=== PATIENT | female | born 1990 | race Caucasian/White ===

== ENCOUNTER 2018-12-17 15:19 | Emergency (ER) | payer SELFPAY ==
[2018-12-17 15:43] VITALS: BP 119/78
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
[2018-12-17] MEDS ORDERED: Acetaminophen Soln 650 MG/20.3 ML UD Cup PO ONE (16:28)
[2018-12-17] MEDS ORDERED: Ibuprofen 400 MG Tab PO ONE (16:29)
== END 2018-12-17 16:38 | disposition home or self-care (01) ==
LOC: JP.ED 15:19
DX: R51 Headache (principal); Z88.2 Allergy status to sulfonamides; Z88.1 Allergy status to other antibiotic agents
CPT/HCPCS: 99283; A9270

== ENCOUNTER 2020-11-22 20:22 | Inpatient (IN) | payer OTHER ==
[2020-11-22] MEDS ORDERED: Alum Hydrox/Mag Hydrox/Simeth 15 ML, Lidocaine 2% 15 ML PO ONE ×2 (21:06)
--- NOTE | 2020-11-22 21:17 | EDM.PDOC ---
ED HPI GENERAL MEDICAL PROBLEM - General Chief Complaint: Abdominal Pain Stated Complaint: STOMACH PAIN Time Seen by Provider: 11/22/20 20:50 Source of Information: Reports: Patient, Family, RN History Limitations: Reports: No Limitations - History of Present Illness INITIAL COMMENTS - FREE TEXT/NARRATIVE: Pt comes in with abdominal pain. Patient points specifically to epigastric region. She has not eaten anything all day. She has been drinking water all day. She does not have nausea and is not vomiting. She does not feel she could be at this time. BM yesterday. Able to void without difficulty today. Pt has tried ibuprofen to make it better without success. 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 epigastric pain Pain Score (Numeric/FACES): 10 - Related Data Allergies Allergy/AdvReac Type Severity Reaction Status Date / Time sulfamethoxazole Allergy Rash Verified 11/22/20 20:43 [From Bactrim] trimethoprim [From Bactrim] Allergy Rash Verified 11/22/20 20:43 Home Meds: Home Meds NK [No Known Home Meds] 11/22/20 [History] Past Medical History HEENT History: Reports: Impaired Vision, Other (See Below) Other HEENT History: glasses Gastrointestinal History: Reports: Cholelithiasis Genitourinary History: Reports: None 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: Reports: Polycystic Ovaries Other 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: ovarian cyst, has IUD Psychiatric History: Reports: Depression, Suicide Attempt, Suicidal Ideation Endocrine/Metabolic History: Reports: Obesity/BMI 30+ - Infectious Disease History Infectious Disease History: Reports: Chicken Pox - Past Surgical History HEENT Surgical History: Reports: Oral Surgery GI Surgical History: Reports: Appendectomy, Bariatric Procedure, Cholecystectomy Other GI Surgeries/Procedures: January 2015 Female Surgical History: Reports: Oophorectomy Other Female Surgeries/Procedures: cyst Social & Family History - Family History HEENT: Reports: None Cardiac: Reports: Hypertension Respiratory: Reports: None GI: Reports: None Neurological: Reports: Other (See Below) Other Neurological Family History: maternal grandfather had ALS Endocrine/Metabolic: Reports: Diabetes, type II, Obesity/MBI 30+ Other Endocrine/Metabolic Family History: Mother and both grandmothers are Type 2 - Tobacco Use Tobacco Use Status *Q: Never Tobacco User - Caffeine Use Caffeine Use: Reports: Coffee, Soda - Recreational Drug Use Recreational Drug Use: No ED ROS GENERAL - Review of Systems Review Of Systems: See Below Constitutional: Reports: No Symptoms HEENT: Reports: No Symptoms Respiratory: Reports: No Symptoms Cardiovascular: Reports: No Symptoms Endocrine: Reports: No Symptoms GI/Abdominal: Reports: Abdominal Pain (epigastric pain), Other (hystory RNY). Denies: Constipation, Diarrhea, Decreased Appetite, Difficulty Swallowing, Nausea, Vomiting : Reports: No Symptoms Musculoskeletal: Reports: No Symptoms Skin: Reports: No Symptoms Neurological: Reports: No Symptoms Psychiatric: Reports: No Symptoms Hematologic/Lymphatic: Reports: No Symptoms Immunologic: Reports: No Symptoms ED EXAM, GI/ABD - Physical Exam Exam: See Below Exam Limited By: No Limitations General Appearance: Alert, WD/WN Throat/Mouth: Normal Inspection, Other (multiple dental carries) Head: Atraumatic, Normocephalic Neck: Normal Inspection, Supple Respiratory/Chest: No Respiratory Distress, Lungs Clear, Normal Breath Sounds, No Accessory Muscle Use, Chest Non-Tender Cardiovascular: Normal Peripheral Pulses, Regular Rate, Rhythm, No Edema, No Gallop, No JVD, No Murmur, No Rub GI/Abdominal Exam: Normal Bowel Sounds, Soft, No Distention, No Abnormal Bruit, No Mass, Guarding, Tender (epigasric region). No: Distended Neurological: Alert, Oriented, CN II-XII Intact Psychiatric: Normal Affect, Normal Mood Skin Exam: Warm, Dry, Intact Course - Vital Signs Last Recorded V/S: Last Vital Signs Temp 37.7 C 11/22/20 20:53 Pulse 68 11/22/20 20:53 Resp 20 11/22/20 20:53 BP 139/73 11/22/20 20:53 Pulse Ox 97 11/22/20 20:53 - Orders/Labs/Meds Orders: Active Orders 24 hr Category Date Time Status Lactated Ringers [Ringers, Lactated] 1,000 ml Med 11/22/20 23:01 Active IV BOLUS Medication Orders Lactated Ringer's (Ringers, Lactated) 1,000 mls @ 999 mls/hr IV BOLUS ONE Stop: 11/23/20 00:01 Last Admin: 11/22/20 23:13 Dose: 999 mls/hr Documented by: ARTI Abdomen/pelvis ct on preliminary view shows significant inflammation around Pancrease will wait for radiologist read Labs: Laboratory Tests 11/22/20 11/22/20 11/22/20 Range/Units 21:23 21:23 21:39 WBC 8.1 (4.5-11.0) K/uL RBC 4.37 (3.30-5.50) M/uL Hgb 13.0 (12.0-15.0) g/dL Hct 40.2 (36.0-48.0) % MCV 92 (80-98) fL MCH 30 (27-31) pg MCHC 32 (32-36) % Plt Count 221 (150-400) K/uL Neut % (Auto) 89 H (36-66) % Lymph % (Auto) 6 L (24-44) % [place] % (Auto) 5 (2-6) % Eos % (Auto) 0 L (2-4) % Baso % (Auto) 0 (0-1) % Sodium 139 L (140-148) mmol/L Potassium 4.1 (3.6-5.2) mmol/L Chloride 99 L (100-108) mmol/L Carbon Dioxide 28 (21-32) mmol/L Anion Gap 16.1 H (5.0-14.0) mmol/L BUN 6 L (7-18) mg/dL Creatinine 0.7 (0.6-1.0) mg/dL Est Cr Clr Drug Dosing 113.24 mL/min Estimated GFR (MDRD) > 60 (>60) Glucose 123 H (74-106) mg/dL Calcium 8.4 L (8.5-10.1) mg/dL Total Bilirubin 2.2 H D (0.2-1.0) mg/dL AST 96 H D (15-37) U/L ALT 89 H (12-78) U/L Alkaline Phosphatase 146 H D (46-116) U/L Total Protein 6.3 L (6.4-8.2) g/dL Albumin 3.2 L (3.4-5.0) g/dL Globulin 3.1 (2.3-3.5) g/dL Albumin/Globulin Ratio 1.0 L (1.2-2.2) Amylase 345 H D (25-115) U/L Lipase 3186 H (73-393) U/L Elevation in liver enzymes, Significant elevation of lipase and amylase - dx pancreatitis Meds: Medications Generic Name Dose Route Start Last Admin Trade Name Freq PRN Reason Stop Dose Admin Lactated Ringer's 1,000 mls @ 999 mls/hr 11/22/20 23:01 11/22/20 23:13 Ringers, Lactated IV 11/23/20 00:01 999 mls/hr BOLUS ONE Administration Discontinued Medications Generic Name Dose Route Start Last Admin Trade Name Freq PRN Reason Stop Dose Admin Al Hydroxide/Mg Hydroxide 15 0 ml 11/22/20 21:06 11/22/20 21:17 ml/ Lidocaine HCl 15 ml PO 11/22/20 21:07 30 ml ONETIME ONE Administration Famotidine 20 mg 11/22/20 21:25 11/22/20 21:34 Famotidine 20 Mg Tab PO 11/22/20 21:26 20 mg ONETIME ONE Administration Hydromorphone HCl 1 mg 11/22/20 22:42 11/22/20 23:08 Hydromorphone 1 Mg/Ml Syringe IVPUSH 11/22/20 22:43 1 mg ONETIME ONE Administration Ondansetron HCl 4 mg 11/22/20 22:43 11/22/20 23:05 Ondansetron 4 Mg/2 Ml Sdv IVPUSH 11/22/20 22:44 4 mg ONETIME ONE Administration - Re-Assessments/Exams Free Text/Narrative Re-Assessment/Exam: 11/22/20 23:10 Discussion with pt and s/o regarding lab values and inflammation on CT with lik effie dx of pancreatitis. Waiting formal read of CT. Pt agrees with plan of pain management and possible admission. Pt instructed NPO at this time. 11/22/20 23:23 Radiologist final read - confirm acute pancreatits - Consult with hospitalist for admit - dx pancreatitis Departure - Departure Time of Disposition: 23:59 Disposition: Admitted As Inpatient 65 Condition: Fair Clinical Impression: Pancreatitis - Discharge Information *PRESCRIPTION DRUG MONITORING PROGRAM REVIEWED*: Not Applicable *COPY OF PRESCRIPTION DRUG MONITORING REPORT IN PATIENT CHANDRIKA: Not Applicable Instructions: Acute Pancreatitis, [id number] Referrals: PCP,None [Primary Care Provider] - Forms: ED Department Discharge Care Plan Goals: Admit to hospitalist Sepsis Event Note (ED) - Evaluation Sepsis Screening Result: No Definite Risk - Focused Exam Vital Signs: Vital Signs Temp Pulse Resp BP Pulse Ox 11/22/20 20:53 37.7 C 68 20 139/73 97 11/22/20 20:52 37.7 C 68 20 139/73 97 - My Orders Last 24 Hours: My Active Orders 11/22/20 23:01 Lactated Ringers [Ringers, Lactated] 1,000 ml IV BOLUS - Assessment/Plan Last 24 Hours: My Active Orders 11/22/20 23:01 Lactated Ringers [Ringers, Lactated] 1,000 ml IV BOLUS Assessment:: DX Acute pancreatitis Plan: Admit to hospitalist for pancreatitis, pain management. PT NPO, provided dilaudid and zofran in ER. Started on LR BOLUS
[2020-11-22] MEDS ORDERED: Famotidine 20 MG Tab PO ONE (21:25)
[2020-11-22] MEDS ORDERED: HYDROmorphone 1 MG/ML Syringe IVPUSH ONE (22:42)
[2020-11-22] MEDS ORDERED: Ondansetron 4 MG/2 ML SDV IVPUSH ONE (22:43)
[2020-11-22] MEDS ORDERED: Lactated Ringers 1,000 ML IV ONE (23:01)
--- NOTE | 2020-11-22 23:13 | CRLCT ---
HISTORY: Periumbilical abdominal pain. COMPARISON: 06/26/2015. TECHNIQUE: Axial images were obtained through the abdomen pelvis without contrast. FINDINGS: The lung bases are clear. Fatty infiltration of the liver. Acute inflammatory changes of the mid to distal pancreas with moderate amount of fluid stranding within the left upper quadrant and into left pelvis. Small amount of fluid in the cul-de-sac. Findings are consistent with acute pancreatitis. IUD. The bones are within normal. IMPRESSION: Acute pancreatitis. Please note that all CT scans at this facility use dose modulation, iterative reconstruction, and/or weight-based dosing when appropriate to reduce radiation dose to as low as reasonably achievable. Dictated by Padmini Purvis MD @ 11/22/2020 11:12:[address] Padmini Purvis @ Nov 22 2020 11:12PM
--- NOTE | 2020-11-22 23:56 | PCM.HP.2 ---
H&P History of Present Illness - General Date of Service: 11/22/20 Source of Information: Patient, Provider History Limitations: Reports: No Limitations - History of Present Illness Onset of Symptoms: Reports: Today Duration of Symptoms: Reports: Hour(s):, Constant, Getting Worse Location: Reports: Abdomen Quality: Reports: Sharp, Stabbing Severity: Moderate Improves with: Reports: None Worsens with: Reports: Eating Associated Symptoms: Reports: Loss of Appetite, Nausea/Vomiting epigastric pain Pain Score (Numeric/FACES): 10 - Related Data Allergies/Adverse Reactions: Allergies Allergy/AdvReac Type Severity Reaction Status Date / Time sulfamethoxazole Allergy Rash Verified 11/22/20 20:43 [From Bactrim] trimethoprim [From Bactrim] Allergy Rash Verified 11/22/20 20:43 Home Medications: Home Meds NK [No Known Home Meds] 11/22/20 [History] Past Medical History HEENT History: Reports: Impaired Vision, Other (See Below) Other HEENT History: glasses Gastrointestinal History: Reports: Cholelithiasis Genitourinary History: Reports: None 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: Reports: Polycystic Ovaries Other OB/BYN History: ovarian cyst, has IUD Psychiatric History: Reports: Depression, Suicide Attempt, Suicidal Ideation Endocrine/Metabolic History: Reports: Obesity/BMI 30+ - Infectious Disease History Infectious Disease History: Reports: Chicken Pox - Past Surgical History HEENT Surgical History: Reports: Oral Surgery GI Surgical History: Reports: Appendectomy, Bariatric Procedure, Cholecystectomy Other GI Surgeries/Procedures: January 2015 Female Surgical History: Reports: Oophorectomy Other Female Surgeries/Procedures: cyst Social & Family History - Family History HEENT: Reports: None Cardiac: Reports: Hypertension Respiratory: Reports: None GI: Reports: None Neurological: Reports: Other (See Below) Other Neurological Family History: maternal grandfather had ALS Endocrine/Metabolic: Reports: Diabetes, type II, Obesity/MBI 30+ Other Endocrine/Metabolic Family History: Mother and both grandmothers are Type 2 - Tobacco Use Tobacco Use Status *Q: Never Tobacco User - Caffeine Use Caffeine Use: Reports: Coffee, Soda - Recreational Drug Use Recreational Drug Use: No - Living Situation & Occupation Living situation: Reports: with Significant Other, with Family Occupation: Employed (lives with Boyfriend and family in [place], [place]. no children. 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) Genitourinary: Reports: No Symptoms Musculoskeletal: Reports: No Symptoms Skin: Reports: No Symptoms Psychiatric: Reports: No Symptoms Neurological: Reports: No Symptoms Hematologic/Lymphatic: Reports: No Symptoms Immunologic: Reports: No Symptoms Exam - Exam Exam: See Below - Vital Signs Vital Signs: Last Vital Signs Temp 99.9 F 11/22/20 20:53 Pulse 68 11/22/20 20:53 Resp 20 11/22/20 20:53 BP 139/73 11/22/20 20:53 Pulse Ox 97 11/22/20 20:53 Weight: 294 lb 1.546 oz - Exam Quality Assessment: DVT Prophylaxis General: Alert, Oriented, Cooperative, Sedated HEENT: PERRLA, Hearing Intact, Mucosa Moist & [place], Nares Patent, Normal Nasal Septum, Posterior Pharynx Clear, Conjunctiva Clear, EOMI, EACs Clear, TMs Clear Neck: Supple, Trachea Midline, 2 Lungs: Clear to Auscultation, Normal Respiratory Effort Cardiovascular: Regular Rate, Regular Rhythm, Normal S1, Normal S2 GI/Abdominal Exam: Normal Bowel Sounds, Soft, No Distention, Tender (epigastric) (Female) Exam: Deferred Rectal (Female) Exam: Deferred Back Exam: Normal Inspection, Full Range of Motion, NT Extremities: Normal Inspection, Normal Range of Motion, Non-Tender, No Pedal Edema, Normal Capillary Refill Skin: Warm, Dry, Intact Neurological: Cranial Nerves Intact, Reflexes Equal Bilateral Neuro Extensive - Mental Status: Alert, Oriented x3, Normal Mood/Affect, Normal Cognition Neuro Extensive - Motor, Sensory, Reflexes: CN II-XII Intact, Normal Gait, Normal Reflexes Psychiatric: Alert, Normal Affect, Normal Mood - Patient Data Lab Results Last 24 hrs: Laboratory Results - last 24 hr 11/22/20 11/22/20 11/22/20 Range/Units 21:23 21:23 21:39 WBC 8.1 (4.5-11.0) K/uL RBC 4.37 (3.30-5.50) M/uL Hgb 13.0 (12.0-15.0) g/dL Hct 40.2 (36.0-48.0) % MCV 92 (80-98) fL MCH 30 (27-31) pg MCHC 32 (32-36) % Plt Count 221 (150-400) K/uL Neut % (Auto) 89 H (36-66) % Lymph % (Auto) 6 L (24-44) % [place] % (Auto) 5 (2-6) % Eos % (Auto) 0 L (2-4) % Baso % (Auto) 0 (0-1) % Sodium 139 L (140-148) mmol/L Potassium 4.1 (3.6-5.2) mmol/L Chloride 99 L (100-108) mmol/L Carbon Dioxide 28 (21-32) mmol/L Anion Gap 16.1 H (5.0-14.0) mmol/L BUN 6 L (7-18) mg/dL Creatinine 0.7 (0.6-1.0) mg/dL Est Cr Clr Drug Dosing 113.24 mL/min Estimated GFR (MDRD) > 60 (>60) Glucose 123 H (74-106) mg/dL Calcium 8.4 L (8.5-10.1) mg/dL Total Bilirubin 2.2 H D (0.2-1.0) mg/dL AST 96 H D (15-37) U/L ALT 89 H (12-78) U/L Alkaline Phosphatase 146 H D (46-116) U/L Total Protein 6.3 L (6.4-8.2) g/dL Albumin 3.2 L (3.4-5.0) g/dL Globulin 3.1 (2.3-3.5) g/dL Albumin/Globulin Ratio 1.0 L (1.2-2.2) Amylase 345 H D (25-115) U/L Lipase 3186 H (73-393) U/L Result Diagrams: 11/22/20 21:23 11/22/20 21:23 Sepsis Event Note - Evaluation Sepsis Screening Result: No Definite Risk - Focused Exam Vital Signs: Vital Signs Temp Pulse Resp BP Pulse Ox 11/22/20 20:53 99.9 F 68 20 139/73 97 11/22/20 20:52 99.9 F 68 20 139/73 97 - Problem List (1) Pancreatitis SNOMED Code(s): 32995384 ICD Code: K85.90 - ACUTE PANCREATITIS WITHOUT NECROSIS OR INFECTION, UNSP Status: Acute Priority: High Current Visit: Yes Qualifiers: Chronicity: acute Pancreatitis type: unspecified pancreatitis type Acute pancreatitis complication: uninfected necrosis Qualified Code(s): K85.91 - Acute pancreatitis with uninfected necrosis, unspecified (2) History of Simona-en-Y gastric bypass SNOMED Code(s): 925964359 ICD Code: Z98.84 - BARIATRIC SURGERY STATUS Status: Acute Priority: Low Current Visit: Yes (3) Hypothyroidism SNOMED Code(s): 34568708 ICD Code: E03.9 - HYPOTHYROIDISM, UNSPECIFIED Status: Chronic Priority: Low Current Visit: Yes Qualifiers: Hypothyroidism type: unspecified Qualified Code(s): E03.9 - Hypothyroidism, unspecified Problem List Initiated/Reviewed/Updated: Yes Orders Last 24hrs: Active Orders 24 hr Category Date Time Status HCG QUALITATIVE,URINE [URCHEM] Urgent Lab 11/22/20 23:49 Ordered UA W/MICROSCOPIC [URIN] Urgent Lab 11/22/20 23:49 Ordered Lactated Ringers [Ringers, Lactated] 1,000 ml Med 11/22/20 23:01 Active IV BOLUS Medication Orders Lactated Ringer's (Ringers, Lactated) 1,000 mls @ 999 mls/hr IV BOLUS ONE Stop: 11/23/20 00:01 Last Admin: 11/22/20 23:13 Dose: 999 mls/hr Documented by: ARTI Assessment/Plan Comment:: Assessment/Plan Comment:: ASSESSMENT AND PLAN ACUTE PANCREATITIS - reports abdominal pain starting today with dry heaves. reports drinks 4 to 5 alcohol drinks per day when not working. has not had any problems with pancreases in the past. report no chronic medications. history of Simona-en-Y in 2014. history of hypothyroidism but does not take any medications. -N.P.O. -IV fluids for hydration -IV pain control -IV ant-emetic -Protonix 40 mg IV daily -Labs-CBC, BMP, Amylase, Lipase History of Simona-en-Y gastric surgery 2014 -monitor for any complications HYPOTHYROIDISM -TSH pending MAINTENANCE ISSUES -DVT prophylaxis; SCD -GI prophylaxis; Protonix as above -Diaz catheter; not indicated -Nutrition; n.p.o. -Nicotine dependence; not required CODE STATUS-FULL CODE ADMISSION STATUS-patient will be admitted to inpatient status, expect at least a 2 night hospital stay for evaluation and management of problems as outlined above. At the time of this admission I do not reasonably expected evaluation and management of this problem will require more than a 96 hour hospital stay. DISPOSITION-anticipate discharge to home after the hospital stay. PRIMARY CARE PROVIDER-[facility] HOSPITALIST- Dr. Swenson - Mortality Measure Prognosis:: Good - Mortality Measure Prognosis:: Good
[2020-11-23] MEDS ORDERED: Ondansetron 4 MG/2 ML SDV IV PRN (00:13)
[2020-11-23] MEDS: Sodium Chloride 0.9% 1,000 ML IV SCH ×4 (00:51→17:42)
[2020-11-23] MEDS: HYDROmorphone 1 MG/ML Syringe IVPUSH PRN ×5 (01:05→23:24)
[2020-11-23] MEDS: Pantoprazole 40 MG Vial IV SCH (08:57)
--- NOTE | 2020-11-23 13:09 | PCM.PN ---
- General Info Date of Service: 11/23/20 Subjective Update: Ms. Parker is a 30-year-old woman who was admitted through the emergency department with abdominal pain, nausea, vomiting, secondary to pancreatitis. She does report almost daily alcohol use of a substantial amount. Since admission pain has improved but is still present. She continues to experience nausea. Functional Status: Reports: Ambulating, Urinating - Review of Systems General: Reports: No Symptoms Pulmonary: Reports: No Symptoms Cardiovascular: Reports: No Symptoms Gastrointestinal: Reports: Abdominal Pain, Nausea. Denies: Difficulty Swallowing, Hematochezia, Melena, Vomiting Genitourinary: Reports: No Symptoms - Patient Data Vitals - Most Recent: Last Vital Signs Temp 97.8 F 11/23/20 08:27 Pulse 78 11/23/20 08:27 Resp 14 11/23/20 08:27 BP 138/80 11/23/20 08:27 Pulse Ox 96 11/23/20 08:27 Weight - Most Recent: 296 lb 1.293 oz I&O - Last 24 Hours: Intake & Output 11/22/20 11/23/20 11/23/20 22:59 06:59 14:59 Intake Total 1451 Output Total 250 150 Balance 1201 -150 Lab Results Last 24 Hours: Laboratory Results - last 24 hr 11/22/20 11/22/20 11/22/20 Range/Units 21:23 21:23 21:39 WBC 8.1 (4.5-11.0) K/uL RBC 4.37 (3.30-5.50) M/uL Hgb 13.0 (12.0-15.0) g/dL Hct 40.2 (36.0-48.0) % MCV 92 (80-98) fL MCH 30 (27-31) pg MCHC 32 (32-36) % Plt Count 221 (150-400) K/uL Neut % (Auto) 89 H (36-66) % Lymph % (Auto) 6 L (24-44) % [place] % (Auto) 5 (2-6) % Eos % (Auto) 0 L (2-4) % Baso % (Auto) 0 (0-1) % Sodium 139 L (140-148) mmol/L Potassium 4.1 (3.6-5.2) mmol/L Chloride 99 L (100-108) mmol/L Carbon Dioxide 28 (21-32) mmol/L Anion Gap 16.1 H (5.0-14.0) mmol/L BUN 6 L (7-18) mg/dL Creatinine 0.7 (0.6-1.0) mg/dL Est Cr Clr Drug Dosing 113.24 mL/min Estimated GFR (MDRD) > 60 (>60) Glucose 123 H (74-106) mg/dL Calcium 8.4 L (8.5-10.1) mg/dL Total Bilirubin 2.2 H D (0.2-1.0) mg/dL AST 96 H D (15-37) U/L ALT 89 H (12-78) U/L Alkaline Phosphatase 146 H D (46-116) U/L Total Protein 6.3 L (6.4-8.2) g/dL Albumin 3.2 L (3.4-5.0) g/dL Globulin 3.1 (2.3-3.5) g/dL Albumin/Globulin Ratio 1.0 L (1.2-2.2) Amylase 345 H D (25-115) U/L Lipase 3186 H (73-393) U/L TSH, Ultra Sensitive (0.358-3.740) uIU/mL Urine Color (YELLOW) Urine Appearance (CLEAR) Urine pH (5.0-8.0) Ur Specific [place] (1.008-1.030) Urine Protein (NEGATIVE) mg/dL Urine Glucose (UA) (NEGATIVE) mg/dL Urine Ketones (NEGATIVE) mg/dL Urine Occult Blood (NEGATIVE) Urine Nitrite (NEGATIVE) Urine Bilirubin (NEGATIVE) Urine Urobilinogen (0.2-1.0) EU/dL Ur Leukocyte Esterase (NEGATIVE) Urine RBC (0-5) Urine WBC (0-5) Ur Epithelial Cells Amorphous Sediment Urine Bacteria Urine Mucus Urine HCG, Qual 11/23/20 11/23/20 11/23/20 Range/Units 00:13 05:01 05:01 WBC 9.0 (4.5-11.0) K/uL RBC 4.13 (3.30-5.50) M/uL Hgb 12.5 (12.0-15.0) g/dL Hct 38.3 (36.0-48.0) % MCV 93 (80-98) fL MCH 30 (27-31) pg MCHC 33 (32-36) % Plt Count 202 (150-400) K/uL Neut % (Auto) 87 H (36-66) % Lymph % (Auto) 8 L (24-44) % [place] % (Auto) 6 (2-6) % Eos % (Auto) 0 L (2-4) % Baso % (Auto) 0 (0-1) % Sodium 140 (140-148) mmol/L Potassium 3.9 (3.6-5.2) mmol/L Chloride 102 (100-108) mmol/L Carbon Dioxide 28 (21-32) mmol/L Anion Gap 10.1 (5.0-14.0) mmol/L BUN 7 (7-18) mg/dL Creatinine 0.7 (0.6-1.0) mg/dL Est Cr Clr Drug Dosing 113.24 mL/min Estimated GFR (MDRD) > 60 (>60) Glucose 118 H (74-106) mg/dL Calcium 8.2 L (8.5-10.1) mg/dL Total Bilirubin (0.2-1.0) mg/dL AST (15-37) U/L ALT (12-78) U/L Alkaline Phosphatase (46-116) U/L Total Protein (6.4-8.2) g/dL Albumin (3.4-5.0) g/dL Globulin (2.3-3.5) g/dL Albumin/Globulin Ratio (1.2-2.2) Amylase 288 H (25-115) U/L Lipase 2058 H (73-393) U/L TSH, Ultra Sensitive 2.354 (0.358-3.740) uIU/mL Urine Color (YELLOW) Urine Appearance (CLEAR) Urine pH (5.0-8.0) Ur Specific [place] (1.008-1.030) Urine Protein (NEGATIVE) mg/dL Urine Glucose (UA) (NEGATIVE) mg/dL Urine Ketones (NEGATIVE) mg/dL Urine Occult Blood (NEGATIVE) Urine Nitrite (NEGATIVE) Urine Bilirubin (NEGATIVE) Urine Urobilinogen (0.2-1.0) EU/dL Ur Leukocyte Esterase (NEGATIVE) Urine RBC (0-5) Urine WBC (0-5) Ur Epithelial Cells Amorphous Sediment Urine Bacteria Urine Mucus Urine HCG, Qual 11/23/20 11/23/20 Range/Units 08:24 08:24 WBC (4.5-11.0) K/uL RBC (3.30-5.50) M/uL Hgb (12.0-15.0) g/dL Hct (36.0-48.0) % MCV (80-98) fL MCH (27-31) pg MCHC (32-36) % Plt Count (150-400) K/uL Neut % (Auto) (36-66) % Lymph % (Auto) (24-44) % [place] % (Auto) (2-6) % Eos % (Auto) (2-4) % Baso % (Auto) (0-1) % Sodium (140-148) mmol/L Potassium (3.6-5.2) mmol/L Chloride (100-108) mmol/L Carbon Dioxide (21-32) mmol/L Anion Gap (5.0-14.0) mmol/L BUN (7-18) mg/dL Creatinine (0.6-1.0) mg/dL Est Cr Clr Drug Dosing mL/min Estimated GFR (MDRD) (>60) Glucose (74-106) mg/dL Calcium (8.5-10.1) mg/dL Total Bilirubin (0.2-1.0) mg/dL AST (15-37) U/L ALT (12-78) U/L Alkaline Phosphatase (46-116) U/L Total Protein (6.4-8.2) g/dL Albumin (3.4-5.0) g/dL Globulin (2.3-3.5) g/dL Albumin/Globulin Ratio (1.2-2.2) Amylase (25-115) U/L Lipase (73-393) U/L TSH, Ultra Sensitive (0.358-3.740) uIU/mL Urine Color Yellow (YELLOW) Urine Appearance Cloudy A (CLEAR) Urine pH 5.5 (5.0-8.0) Ur Specific [place] >= 1.030 (1.008-1.030) Urine Protein 30 H (NEGATIVE) mg/dL Urine Glucose (UA) Negative (NEGATIVE) mg/dL Urine Ketones 15 H (NEGATIVE) mg/dL Urine Occult Blood Negative (NEGATIVE) Urine Nitrite Positive H (NEGATIVE) Urine Bilirubin Small H (NEGATIVE) Urine Urobilinogen 2.0 H (0.2-1.0) EU/dL Ur Leukocyte Esterase Negative (NEGATIVE) Urine RBC 0-5 (0-5) Urine WBC 10-20 H (0-5) Ur Epithelial Cells Few Amorphous Sediment Not seen Urine Bacteria Many Urine Mucus Few Urine HCG, Qual Negative Med Orders - Current: Current Medications Hydromorphone HCl (Hydromorphone 1 Mg/Ml Syringe) 1 mg IVPUSH Q2H PRN PRN Reason: Abdominal Pain Last Admin: 11/23/20 08:51 Dose: 1 mg Documented by: Ceftriaxone Sodium 1 gm/ (Sodium Chloride) 50 mls @ 100 mls/hr IV Q24H B[facility] Sodium Chloride (Normal Saline) 1,000 mls @ 75 mls/hr IV ASDIRECTED [facility] Ondansetron HCl (Ondansetron 4 Mg/2 Ml Sdv) 4 mg IV Q4H PRN PRN Reason: Nausea/Vomiting Last Admin: 11/23/20 08:52 Dose: 4 mg Documented by: Pantoprazole Sodium (Pantoprazole 40 Mg Vial) 40 mg IV DAILY [facility] Last Admin: 11/23/20 08:57 Dose: 40 mg Documented by: Discontinued Medications Al Hydroxide/Mg Hydroxide 15 (ml/ Lidocaine HCl 15 ml) 0 ml PO ONETIME ONE Stop: 11/22/20 21:07 Last Admin: 11/22/20 21:17 Dose: 30 ml Documented by: Famotidine (Famotidine 20 Mg Tab) 20 mg PO ONETIME ONE Stop: 11/22/20 21:26 Last Admin: 11/22/20 21:34 Dose: 20 mg Documented by: Hydromorphone HCl (Hydromorphone 1 Mg/Ml Syringe) 1 mg IVPUSH ONETIME ONE Stop: 11/22/20 22:43 Last Admin: 11/22/20 23:08 Dose: 1 mg Documented by: Lactated Ringer's (Ringers, Lactated) 1,000 mls @ 999 mls/hr IV BOLUS ONE Stop: 11/23/20 00:01 Last Admin: 11/22/20 23:13 Dose: 999 mls/hr Documented by: Sodium Chloride (Normal Saline) 1,000 mls @ 125 mls/hr IV ASDIRECTED [facility] Last Admin: 11/23/20 08:50 Dose: 125 mls/hr Documented by: Ondansetron HCl (Ondansetron 4 Mg/2 Ml Sdv) 4 mg IVPUSH ONETIME ONE Stop: 11/22/20 22:44 Last Admin: 11/22/20 23:05 Dose: 4 mg Documented by: - Exam General: Alert, Oriented, Cooperative, Moderate Distress Lungs: Clear to Auscultation, Normal Respiratory Effort Cardiovascular: Regular Rate, Regular Rhythm, No Murmurs GI/Abdominal Exam: Soft, No Organomegaly, Distended, Tender. No: Guarding, Rigid, Rebound Extremities: Non-Tender, No Pedal Edema - Patient Data Lab Results Last 24 hrs: Laboratory Results - last 24 hr 11/22/20 11/22/20 11/22/20 Range/Units 21:23 21:23 21:39 WBC 8.1 (4.5-11.0) K/uL RBC 4.37 (3.30-5.50) M/uL Hgb 13.0 (12.0-15.0) g/dL Hct 40.2 (36.0-48.0) % MCV 92 (80-98) fL MCH 30 (27-31) pg MCHC 32 (32-36) % Plt Count 221 (150-400) K/uL Neut % (Auto) 89 H (36-66) % Lymph % (Auto) 6 L (24-44) % [place] % (Auto) 5 (2-6) % Eos % (Auto) 0 L (2-4) % Baso % (Auto) 0 (0-1) % Sodium 139 L (140-148) mmol/L Potassium 4.1 (3.6-5.2) mmol/L Chloride 99 L (100-108) mmol/L Carbon Dioxide 28 (21-32) mmol/L Anion Gap 16.1 H (5.0-14.0) mmol/L BUN 6 L (7-18) mg/dL Creatinine 0.7 (0.6-1.0) mg/dL Est Cr Clr Drug Dosing 113.24 mL/min Estimated GFR (MDRD) > 60 (>60) Glucose 123 H (74-106) mg/dL Calcium 8.4 L (8.5-10.1) mg/dL Total Bilirubin 2.2 H D (0.2-1.0) mg/dL AST 96 H D (15-37) U/L ALT 89 H (12-78) U/L Alkaline Phosphatase 146 H D (46-116) U/L Total Protein 6.3 L (6.4-8.2) g/dL Albumin 3.2 L (3.4-5.0) g/dL Globulin 3.1 (2.3-3.5) g/dL Albumin/Globulin Ratio 1.0 L (1.2-2.2) Amylase 345 H D (25-115) U/L Lipase 3186 H (73-393) U/L TSH, Ultra Sensitive (0.358-3.740) uIU/mL Urine Color (YELLOW) Urine Appearance (CLEAR) Urine pH (5.0-8.0) Ur Specific [place] (1.008-1.030) Urine Protein (NEGATIVE) mg/dL Urine Glucose (UA) (NEGATIVE) mg/dL Urine Ketones (NEGATIVE) mg/dL Urine Occult Blood (NEGATIVE) Urine Nitrite (NEGATIVE) Urine Bilirubin (NEGATIVE) Urine Urobilinogen (0.2-1.0) EU/dL Ur Leukocyte Esterase (NEGATIVE) Urine RBC (0-5) Urine WBC (0-5) Ur Epithelial Cells Amorphous Sediment Urine Bacteria Urine Mucus Urine HCG, Qual 11/23/20 11/23/20 11/23/20 Range/Units 00:13 05:01 05:01 WBC 9.0 (4.5-11.0) K/uL RBC 4.13 (3.30-5.50) M/uL Hgb 12.5 (12.0-15.0) g/dL Hct 38.3 (36.0-48.0) % MCV 93 (80-98) fL MCH 30 (27-31) pg MCHC 33 (32-36) % Plt Count 202 (150-400) K/uL Neut % (Auto) 87 H (36-66) % Lymph % (Auto) 8 L (24-44) % [place] % (Auto) 6 (2-6) % Eos % (Auto) 0 L (2-4) % Baso % (Auto) 0 (0-1) % Sodium 140 (140-148) mmol/L Potassium 3.9 (3.6-5.2) mmol/L Chloride 102 (100-108) mmol/L Carbon Dioxide 28 (21-32) mmol/L Anion Gap 10.1 (5.0-14.0) mmol/L BUN 7 (7-18) mg/dL Creatinine 0.7 (0.6-1.0) mg/dL Est Cr Clr Drug Dosing 113.24 mL/min Estimated GFR (MDRD) > 60 (>60) Glucose 118 H (74-106) mg/dL Calcium 8.2 L (8.5-10.1) mg/dL Total Bilirubin (0.2-1.0) mg/dL AST (15-37) U/L ALT (12-78) U/L Alkaline Phosphatase (46-116) U/L Total Protein (6.4-8.2) g/dL Albumin (3.4-5.0) g/dL Globulin (2.3-3.5) g/dL Albumin/Globulin Ratio (1.2-2.2) Amylase 288 H (25-115) U/L Lipase 2058 H (73-393) U/L TSH, Ultra Sensitive 2.354 (0.358-3.740) uIU/mL Urine Color (YELLOW) Urine Appearance (CLEAR) Urine pH (5.0-8.0) Ur Specific [place] (1.008-1.030) Urine Protein (NEGATIVE) mg/dL Urine Glucose (UA) (NEGATIVE) mg/dL Urine Ketones (NEGATIVE) mg/dL Urine Occult Blood (NEGATIVE) Urine Nitrite (NEGATIVE) Urine Bilirubin (NEGATIVE) Urine Urobilinogen (0.2-1.0) EU/dL Ur Leukocyte Esterase (NEGATIVE) Urine RBC (0-5) Urine WBC (0-5) Ur Epithelial Cells Amorphous Sediment Urine Bacteria Urine Mucus Urine HCG, Qual 11/23/20 11/23/20 Range/Units 08:24 08:24 WBC (4.5-11.0) K/uL RBC (3.30-5.50) M/uL Hgb (12.0-15.0) g/dL Hct (36.0-48.0) % MCV (80-98) fL MCH (27-31) pg MCHC (32-36) % Plt Count (150-400) K/uL Neut % (Auto) (36-66) % Lymph % (Auto) (24-44) % [place] % (Auto) (2-6) % Eos % (Auto) (2-4) % Baso % (Auto) (0-1) % Sodium (140-148) mmol/L Potassium (3.6-5.2) mmol/L Chloride (100-108) mmol/L Carbon Dioxide (21-32) mmol/L Anion Gap (5.0-14.0) mmol/L BUN (7-18) mg/dL Creatinine (0.6-1.0) mg/dL Est Cr Clr Drug Dosing mL/min Estimated GFR (MDRD) (>60) Glucose (74-106) mg/dL Calcium (8.5-10.1) mg/dL Total Bilirubin (0.2-1.0) mg/dL AST (15-37) U/L ALT (12-78) U/L Alkaline Phosphatase (46-116) U/L Total Protein (6.4-8.2) g/dL Albumin (3.4-5.0) g/dL Globulin (2.3-3.5) g/dL Albumin/Globulin Ratio (1.2-2.2) Amylase (25-115) U/L Lipase (73-393) U/L TSH, Ultra Sensitive (0.358-3.740) uIU/mL Urine Color Yellow (YELLOW) Urine Appearance Cloudy A (CLEAR) Urine pH 5.5 (5.0-8.0) Ur Specific [place] >= 1.030 (1.008-1.030) Urine Protein 30 H (NEGATIVE) mg/dL Urine Glucose (UA) Negative (NEGATIVE) mg/dL Urine Ketones 15 H (NEGATIVE) mg/dL Urine Occult Blood Negative (NEGATIVE) Urine Nitrite Positive H (NEGATIVE) Urine Bilirubin Small H (NEGATIVE) Urine Urobilinogen 2.0 H (0.2-1.0) EU/dL Ur Leukocyte Esterase Negative (NEGATIVE) Urine RBC 0-5 (0-5) Urine WBC 10-20 H (0-5) Ur Epithelial Cells Few Amorphous Sediment Not seen Urine Bacteria Many Urine Mucus Few Urine HCG, Qual Negative Result Diagrams: 11/23/20 05:01 11/23/20 05:01 Sepsis Event Note - Evaluation Sepsis Screening Result: No Definite Risk - Focused Exam Vital Signs: Vital Signs Temp Pulse Resp BP Pulse Ox 05/16/21 08:27 97.8 F 78 14 138/80 96 11/23/20 04:52 97.0 F 68 16 148/87 H 94 L 11/23/20 01:10 96.8 F L 77 14 125/66 93 L - Problem List Review Problem List Initiated/Reviewed/Updated: Yes - My Orders Last 24 Hours: My Active Orders 11/23/20 13:01 CULTURE URINE [RM] Stat 11/23/20 13:15 Sodium Chloride 0.9% @ 75 MLS/HR(1000ml) Sodium Chloride 0.9% [Normal Saline] 1,000 ml IV ASDIRECTED cefTRIAXone [Rocephin] 1 gm Sodium Chloride 0.9% [Normal Saline] 50 ml IV Q24H 11/24/20 05:00 BASIC METABOLIC PANEL,BMP [CHEM] Timed LIPASE [CHEM] Timed - Plan Plan:: ASSESSMENT AND PLAN ACUTE PANCREATITIS -likely secondary to regular alcohol use. Stable since admission with decreased pain, continues to experience nausea. -N.P.O. -IV fluids for hydration -IV pain control -IV ant-emetic -Protonix 40 mg IV daily -Follow-up labs in a.m. Urinary tract infection-urinalysis is consistent with underlying infection -Urine culture pending -Ceftriaxone 1 g IV every 24 hours pending culture results History of Simona-en-Y gastric surgery 2014 -monitor for any complications HYPOTHYROIDISM -Continue outpatient thyroid replacement medication MAINTENANCE ISSUES -DVT prophylaxis; SCD -GI prophylaxis; Protonix as above -Diaz catheter; not indicated -Nutrition; n.p.o. -Nicotine dependence; not required CODE STATUS-FULL CODE ADMISSION STATUS-patient will be admitted to inpatient status, expect at least a 2 night hospital stay for evaluation and management of problems as outlined above. At the time of this admission I do not reasonably expected evaluation and management of this problem will require more than a 96 hour hospital stay. DISPOSITION-anticipate discharge to home after the hospital stay. PRIMARY CARE PROVIDER-[facility] HOSPITALIST- Dr. Swenson - Mortality Measure Prognosis:: Good
[2020-11-23] MEDS: cefTRIAXone 1 GM in Sodium Chloride 0.9% 50 ML IV SCH (14:49)
[2020-11-24] MEDS: HYDROmorphone 1 MG/ML Syringe IVPUSH PRN ×4 (01:32→19:57)
[2020-11-24] MEDS: Sodium Chloride 0.9% 1,000 ML IV SCH ×2 (06:30→17:35)
[2020-11-24] MEDS: Pantoprazole 40 MG Vial IV SCH (08:12)
[2020-11-24] MEDS ORDERED: Acetaminophen 325 MG Tab PO PRN (09:26)
--- NOTE | 2020-11-24 09:27 | PCM.PN ---
- General Info Date of Service: 11/24/20 Subjective Update: There were no acute events overnight. Abdominal pain is better today but persists. Pain is down to about 4 out of 10. Less nausea today. No vomiting. No fevers. Lipase is down to 600. No shortness of breath. She has been up and walking around. Functional Status: Reports: Pain Controlled - Review of Systems General: Denies: Fever Gastrointestinal: Reports: Abdominal Pain, Nausea - Patient Data Vitals - Most Recent: Last Vital Signs Temp 36.4 C 11/24/20 08:00 Pulse 86 11/24/20 08:00 Resp 12 11/24/20 08:00 BP 133/85 11/24/20 08:00 Pulse Ox 96 11/24/20 08:00 Weight - Most Recent: 134.3 kg I&O - Last 24 Hours: Intake & Output 11/23/20 11/24/20 11/24/20 22:59 06:59 14:59 Intake Total 1425 926 Output Total 200 300 Balance 1225 626 Lab Results Last 24 Hours: Laboratory Results - last 24 hr 11/24/20 Range/Units 06:00 Sodium 141 (140-148) mmol/L Potassium 3.9 (3.6-5.2) mmol/L Chloride 103 (100-108) mmol/L Carbon Dioxide 29 (21-32) mmol/L Anion Gap 9.4 (5.0-14.0) mmol/L BUN 9 (7-18) mg/dL Creatinine 0.6 (0.6-1.0) mg/dL Est Cr Clr Drug Dosing 132.11 mL/min Estimated GFR (MDRD) > 60 (>60) Glucose 94 (74-106) mg/dL Calcium 7.7 L (8.5-10.1) mg/dL Lipase 675 H (73-393) U/L Jeancarlos Results Last 24 Hours: Microbiology 11/23/20 13:04 Urine Culture - Preliminary Urine, Clean Catch Med Orders - Current: Current Medications Hydromorphone HCl (Hydromorphone 1 Mg/Ml Syringe) 1 mg IVPUSH Q2H PRN PRN Reason: Abdominal Pain Last Admin: 11/24/20 06:27 Dose: 1 mg Documented by: Ceftriaxone Sodium 1 gm/ (Sodium Chloride) 50 mls @ 100 mls/hr IV Q24H [facility] Last Admin: 11/23/20 14:49 Dose: 100 mls/hr Documented by: Sodium Chloride (Normal Saline) 1,000 mls @ 75 mls/hr IV ASDIRECTED [facility] Last Admin: 11/24/20 06:30 Dose: 75 mls/hr Documented by: Ondansetron HCl (Ondansetron 4 Mg/2 Ml Sdv) 4 mg IV Q4H PRN PRN Reason: Nausea/Vomiting Last Admin: 11/23/20 08:52 Dose: 4 mg Documented by: Pantoprazole Sodium (Pantoprazole 40 Mg Vial) 40 mg IV DAILY [facility] Last Admin: 11/24/20 08:12 Dose: 40 mg Documented by: Discontinued Medications Al Hydroxide/Mg Hydroxide 15 (ml/ Lidocaine HCl 15 ml) 0 ml PO ONETIME ONE Stop: 11/22/20 21:07 Last Admin: 11/22/20 21:17 Dose: 30 ml Documented by: Famotidine (Famotidine 20 Mg Tab) 20 mg PO ONETIME ONE Stop: 11/22/20 21:26 Last Admin: 11/22/20 21:34 Dose: 20 mg Documented by: Hydromorphone HCl (Hydromorphone 1 Mg/Ml Syringe) 1 mg IVPUSH ONETIME ONE Stop: 11/22/20 22:43 Last Admin: 11/22/20 23:08 Dose: 1 mg Documented by: Lactated Ringer's (Ringers, Lactated) 1,000 mls @ 999 mls/hr IV BOLUS ONE Stop: 11/23/20 00:01 Last Admin: 11/22/20 23:13 Dose: 999 mls/hr Documented by: Sodium Chloride (Normal Saline) 1,000 mls @ 125 mls/hr IV ASDIRECTED [facility] Last Admin: 11/23/20 08:50 Dose: 125 mls/hr Documented by: Ondansetron HCl (Ondansetron 4 Mg/2 Ml Sdv) 4 mg IVPUSH ONETIME ONE Stop: 11/22/20 22:44 Last Admin: 11/22/20 23:05 Dose: 4 mg Documented by: - Exam Quality Assessment: No: Supplemental Oxygen General: Alert, Oriented, Cooperative, No Acute Distress Lungs: Normal Respiratory Effort GI/Abdominal Exam: Soft, No Distention, Tender (moderate epigastric ) Extremities: No Pedal Edema. No: Increased Warmth Skin: Warm, Dry Psy/Mental Status: Alert, Normal Affect - Patient Data Lab Results Last 24 hrs: Laboratory Results - last 24 hr 11/24/20 Range/Units 06:00 Sodium 141 (140-148) mmol/L Potassium 3.9 (3.6-5.2) mmol/L Chloride 103 (100-108) mmol/L Carbon Dioxide 29 (21-32) mmol/L Anion Gap 9.4 (5.0-14.0) mmol/L BUN 9 (7-18) mg/dL Creatinine 0.6 (0.6-1.0) mg/dL Est Cr Clr Drug Dosing 132.11 mL/min Estimated GFR (MDRD) > 60 (>60) Glucose 94 (74-106) mg/dL Calcium 7.7 L (8.5-10.1) mg/dL Lipase 675 H (73-393) U/L Result Diagrams: 11/23/20 05:01 11/24/20 06:00 Jeancarlos Results Last 24 hrs: Microbiology 11/23/20 13:04 Urine Culture - Preliminary Urine, Clean Catch Sepsis Event Note - Evaluation Sepsis Screening Result: No Definite Risk - Focused Exam Vital Signs: Vital Signs Temp Pulse Resp BP Pulse Ox 11/24/20 08:00 36.4 C 86 12 133/85 96 11/24/20 07:34 93 L 11/24/20 03:00 36.2 C 86 16 143/80 H 99 11/24/20 01:00 92 L 11/23/20 23:22 36.7 C 72 16 145/81 H 97 - Problem List Review Problem List Initiated/Reviewed/Updated: Yes - My Orders Last 24 Hours: My Active Orders 11/24/20 09:26 Acetaminophen [TylenoL] 650 mg PO Q4H PRN oxyCODONE 5 mg PO Q4H PRN - Plan Plan:: ASSESSMENT AND PLAN ACUTE PANCREATITIS -likely secondary to regular alcohol use. Slowly improving. Lipase down to 600. -Sips of water and ice chips -IV fluids for hydration -Symptomatic management of pain and nausea -Protonix 40 mg IV daily Urinary tract infection-urinalysis is consistent with underlying infection, culture pending. -Follow-up culture -Ceftriaxone 1 g IV every 24 hours pending culture results History of Simona-en-Y gastric surgery 2014 -monitor for any complications HYPOTHYROIDISM -Continue outpatient thyroid replacement medication MAINTENANCE ISSUES -DVT prophylaxis; SCD -GI prophylaxis; Protonix as above -Nutrition; sips of water and ice chips DISPOSITION-anticipate discharge to home after the hospital stay. Jatin Ramos MD
[2020-11-24] MEDS: cefTRIAXone 1 GM in Sodium Chloride 0.9% 50 ML IV SCH (13:15)
[2020-11-25] MEDS: oxyCODONE 5 MG Tab PO PRN ×2 (05:40→15:29)
[2020-11-25] MEDS: Sodium Chloride 0.9% 1,000 ML IV SCH (05:42)
[2020-11-25] MEDS: cefTRIAXone 1 GM in Sodium Chloride 0.9% 50 ML IV SCH (14:41)
--- NOTE | 2020-11-25 16:41 | PCM.PN ---
- General Info Date of Service: 11/25/20 Subjective Update: There were no acute events overnight. Patient tried clear liquids this morning and did well with that. She tried full liquids at noon but unfortunately had an increase in her abdominal pain as well as some nausea. She is moderately uncomfortable this afternoon. No fevers. No shortness of breath. Otherwise doing okay. Functional Status: Denies: Pain Controlled, Tolerating Diet - Review of Systems Gastrointestinal: Reports: Abdominal Pain - Patient Data Vitals - Most Recent: Last Vital Signs Temp 36.8 C 11/25/20 15:40 Pulse 80 11/25/20 15:40 Resp 16 11/25/20 15:40 BP 123/74 11/25/20 15:40 Pulse Ox 97 11/25/20 15:40 Weight - Most Recent: 134.3 kg I&O - Last 24 Hours: Intake & Output 11/25/20 11/25/20 11/25/20 06:59 14:59 22:59 Intake Total 1163 360 Output Total 175 350 Balance 988 10 Jeancarlos Results Last 24 Hours: Microbiology 11/23/20 13:04 Urine Culture - Final Urine, Clean Catch Escherichia Coli Med Orders - Current: Current Medications Acetaminophen (Acetaminophen 325 Mg Tab) 650 mg PO Q4H PRN PRN Reason: Pain/Fever Hydromorphone HCl (Hydromorphone 1 Mg/Ml Syringe) 1 mg IVPUSH Q2H PRN PRN Reason: Pain (severe 7-10) Last Admin: 11/24/20 19:57 Dose: 1 mg Documented by: Ondansetron HCl (Ondansetron 4 Mg/2 Ml Sdv) 4 mg IV Q4H PRN PRN Reason: Nausea/Vomiting Last Admin: 11/23/20 08:52 Dose: 4 mg Documented by: Oxycodone HCl (Oxycodone 5 Mg Tab) 5 mg PO Q4H PRN PRN Reason: Pain (moderate 4-6) Last Admin: 11/25/20 15:29 Dose: 5 mg Documented by: Discontinued Medications Al Hydroxide/Mg Hydroxide 15 (ml/ Lidocaine HCl 15 ml) 0 ml PO ONETIME ONE Stop: 11/22/20 21:07 Last Admin: 11/22/20 21:17 Dose: 30 ml Documented by: Famotidine (Famotidine 20 Mg Tab) 20 mg PO ONETIME ONE Stop: 11/22/20 21:26 Last Admin: 11/22/20 21:34 Dose: 20 mg Documented by: Hydromorphone HCl (Hydromorphone 1 Mg/Ml Syringe) 1 mg IVPUSH ONETIME ONE Stop: 11/22/20 22:43 Last Admin: 11/22/20 23:08 Dose: 1 mg Documented by: Lactated Ringer's (Ringers, Lactated) 1,000 mls @ 999 mls/hr IV BOLUS ONE Stop: 11/23/20 00:01 Last Admin: 11/22/20 23:13 Dose: 999 mls/hr Documented by: Sodium Chloride (Normal Saline) 1,000 mls @ 125 mls/hr IV ASDIRECTED [facility] Last Admin: 11/23/20 08:50 Dose: 125 mls/hr Documented by: Ceftriaxone Sodium 1 gm/ (Sodium Chloride) 50 mls @ 100 mls/hr IV Q24H [facility] Stop: 11/25/20 16:00 Last Admin: 11/25/20 14:41 Dose: 100 mls/hr Documented by: Sodium Chloride (Normal Saline) 1,000 mls @ 75 mls/hr IV ASDIRECTED [facility] Last Admin: 11/25/20 05:42 Dose: 75 mls/hr Documented by: Ondansetron HCl (Ondansetron 4 Mg/2 Ml Sdv) 4 mg IVPUSH ONETIME ONE Stop: 11/22/20 22:44 Last Admin: 11/22/20 23:05 Dose: 4 mg Documented by: Pantoprazole Sodium (Pantoprazole 40 Mg Vial) 40 mg IV DAILY [facility] Last Admin: 11/24/20 08:12 Dose: 40 mg Documented by: - Exam Quality Assessment: No: Supplemental Oxygen General: Alert, Oriented, Cooperative, No Acute Distress Lungs: Normal Respiratory Effort GI/Abdominal Exam: Soft, No Distention Extremities: No Pedal Edema Skin: Warm, Dry Psy/Mental Status: Alert, Normal Affect - Patient Data Result Diagrams: 11/23/20 05:01 11/24/20 06:00 Jeancarlos Results Last 24 hrs: Microbiology 11/23/20 13:04 Urine Culture - Final Urine, Clean Catch Escherichia Coli Sepsis Event Note - Evaluation Sepsis Screening Result: No Definite Risk - Focused Exam Vital Signs: Vital Signs Temp Pulse Resp BP Pulse Ox 11/25/20 15:40 36.8 C 80 16 123/74 97 11/25/20 13:00 36.8 C 81 16 182/96 H 98 11/25/20 08:11 36.4 C 80 16 151/75 H 96 11/25/20 05:43 36.4 C 74 16 134/68 95 - Problem List Review Problem List Initiated/Reviewed/Updated: Yes - My Orders Last 24 Hours: My Active Orders 11/25/20 08:50 Convert IV to Saline Lock [OM.PC] Routine 11/25/20 Dinner Clear Liquid Diet [DIET] - Plan Plan:: ASSESSMENT AND PLAN ACUTE PANCREATITIS -likely secondary to regular alcohol use. Tolerated clear liquids this morning but did not tolerate full liquids -Return to clear liquids -Saline lock IV -Symptomatic management of pain and nausea Urinary tract infection-urinalysis is consistent with underlying infection, culture pending. -Follow-up culture -Ceftriaxone 1 g IV every 24 hours for 1 more dose History of Simona-en-Y gastric surgery 2014 HYPOTHYROIDISM -Continue outpatient thyroid replacement medication MAINTENANCE ISSUES -DVT prophylaxis; SCD -GI prophylaxis; PPI -Nutrition; sips of water and ice chips DISPOSITION-anticipate discharge to home after the hospital stay. Jatin Ramos MD
[2020-11-25] MEDS: Pantoprazole 40 MG Tab.CR PO SCH (20:02)
[2020-11-26] MEDS: oxyCODONE 5 MG Tab PO PRN (07:42)
[2020-11-26] MEDS: Pantoprazole 40 MG Tab.CR PO SCH (07:42)
[2020-11-26 11:05] VITALS: BP 120/71; PULSE 64
--- NOTE | 2020-11-26 14:58 | PCM.DCSUM1 ---
Discharge Summary - Hospital Course Brief History: 30-year-old female with history of gastric bypass surgery, hypothyroidism who presented with nominal pain with nausea and vomiting. She was admitted for management of acute pancreatitis presumed to be secondary to alcohol use. Diagnosis: Stroke: No - Discharge Data Discharge Date: 11/26/20 Discharge Disposition: Home, Self-Care 01 Condition: Good - Referral to Home Health Primary Care Physician: PCP None - Discharge Diagnosis/Problem(s) (1) Pancreatitis SNOMED Code(s): 70952448 ICD Code: K85.90 - ACUTE PANCREATITIS WITHOUT NECROSIS OR INFECTION, UNSP Status: Acute Priority: High Current Visit: Yes Qualifiers: Chronicity: acute Pancreatitis type: alcohol induced Acute pancreatitis complication: uninfected necrosis Qualified Code(s): K85.21 - Alcohol induced acute pancreatitis with uninfected necrosis (2) History of Simona-en-Y gastric bypass SNOMED Code(s): 113241077 ICD Code: Z98.84 - BARIATRIC SURGERY STATUS Status: Chronic Priority: Low Current Visit: Yes (3) Morbid obesity with BMI of 45.0-49.9, adult SNOMED Code(s): 548394643, 27100852083817 ICD Code: E66.01 - MORBID (SEVERE) OBESITY DUE TO EXCESS CALORIES; Z68.42 - BODY MASS INDEX [BMI] 45.0-49.9, ADULT Status: Chronic Current Visit: No (4) Alcohol dependence SNOMED Code(s): 99909684 ICD Code: F10.20 - ALCOHOL DEPENDENCE, UNCOMPLICATED Status: Chronic Current Visit: Yes Qualifiers: Substance use status: other alcohol-induced disorder Qualified Code(s): F10.288 - Alcohol dependence with other alcohol-induced disorder - Patient Summary/Data Hospital Course: Quentin presented to the emergency room with epigastric abdominal pain, nausea and vomiting. Work-up in the emergency room was suggestive of acute pancreatitis based on laboratory studies and imaging studies. Her lipase was over 3000. CT scan of the abdomen and pelvis showed inflammation around the mid and distal portions of the pancreas. She was admitted to the hospital for further management. She received IV fluids as well as pain management parenterally. Over the next few days her abdominal pain did steadily improve. Her lipase level trended down. Once her pain had improved to a level that it could be managed with oral medications she did receive clear liquids. She tolerated these well. We did try to advance her to full liquids but unfortunately this increased her pain and nausea. We went back to clear liquids for an additional 24 hours. We did then advanced to full liquids and she tolerated this well. Her pain is well controlled using only sporadic oxycodone at this time. She feels well enough to go home. The plan is for her to maintain a liquid diet for the next several days before introducing bland foods and then eventually a regular diet. She will use acetaminophen for mild pain and oxycodone for more intense pain. She has follow-up with primary care and bariatric services scheduled. I suspect that the pancreatitis was caused by her alcohol use. She reported using fairly large quantities of hard alcohol about 5 out of 7 days/week. We did discuss safe alcohol intake. We did discuss the potential for additional counseling or treatment services. She feels that she has adequate support to manage her previous difficulties with drinking at this time and was not interested in additional services. - Patient Instructions Diet: Full Liquid Diet (for the next 3-5 days) Activity: As Tolerated Driving: Do Not Drive (if you are taking pain pills ) Showering/Bathing: May Shower Notify Provider of: Fever, Increased Pain Other/Special Instructions: 1. You were in the hospital for management of acute pancreatitis that we suspect was caused by alcohol dependence and use in quantities larger than recommended. Your condition has been improving with nothing by mouth status, IV fluid hydration and symptomatic management of pain and nausea. I recommend that you use acetaminophen 650 mg every 4 hours as needed for mild pain and oxycodone 5 mg as needed for more intense pain. Hopefully your pain will steadily improve over the next few days. I recommend that you follow a liquid diet for the next several days before advancing to soft and bland foods and then eventually a regular diet over the course of about a week. 2. Follow up as scheduled with primary care and bariatric services. - Discharge Plan *PRESCRIPTION DRUG MONITORING PROGRAM REVIEWED*: Not Applicable *COPY OF PRESCRIPTION DRUG MONITORING REPORT IN PATIENT [place]RI[place]: Not Applicable Prescriptions/Med Rec: oxyCODONE 5 mg PO Q4H PRN #15 tablet PRN Reason: Pain (Moderate 4-6) Home Medications: Home Meds oxyCODONE 5 mg PO Q4H PRN #15 tablet 11/26/20 [Rx] Oxygen Therapy Mode: Room Air Patient Handouts: Acute Pancreatitis, [id number] Referrals: Brennan Borjas MD [Physician] - 12/05/20 2:00 pm (YOUR APPOINTMENT IS AT THE [facility].) Sarina Jolly PA-C [Physician Pharmacy Retail Support Specialist] - 12/16/20 10:30 am (Appointment to reestablish care with the Bariatric team. This will be a virtual visit. Please log in to your My Chart account 15 minutes prior to your appointment time.) - Discharge Summary/Plan Comment DC Time >30 min.: No - Patient Data Vitals - Most Recent: Last Vital Signs Temp 36.2 C 11/26/20 11:04 Pulse 64 11/26/20 11:04 Resp 14 11/26/20 11:04 BP 120/71 11/26/20 11:04 Pulse Ox 95 11/26/20 11:04 Weight - Most Recent: 134.3 kg I&O - Last 24 hours: Intake & Output 11/25/20 11/26/20 11/26/20 22:59 06:59 14:59 Intake Total 096 364 8506 Output Total 1700 1000 Balance 480 -1100 10 Med Orders - Current: Current Medications Acetaminophen (Acetaminophen 325 Mg Tab) 650 mg PO Q4H PRN PRN Reason: Pain/Fever Hydromorphone HCl (Hydromorphone 1 Mg/Ml Syringe) 1 mg IVPUSH Q2H PRN PRN Reason: Pain (severe 7-10) Last Admin: 11/24/20 19:57 Dose: 1 mg Documented by: Ondansetron HCl (Ondansetron 4 Mg/2 Ml Sdv) 4 mg IV Q4H PRN PRN Reason: Nausea/Vomiting Last Admin: 11/23/20 08:52 Dose: 4 mg Documented by: Oxycodone HCl (Oxycodone 5 Mg Tab) 5 mg PO Q4H PRN PRN Reason: Pain (moderate 4-6) Last Admin: 11/26/20 07:42 Dose: 5 mg Documented by: Pantoprazole Sodium (Pantoprazole 40 Mg Tab.Cr) 40 mg PO BIDAC BEN Last Admin: 11/26/20 07:42 Dose: 40 mg Documented by: Discontinued Medications Al Hydroxide/Mg Hydroxide 15 (ml/ Lidocaine HCl 15 ml) 0 ml PO ONETIME ONE Stop: 11/22/20 21:07 Last Admin: 11/22/20 21:17 Dose: 30 ml Documented by: Famotidine (Famotidine 20 Mg Tab) 20 mg PO ONETIME ONE Stop: 11/22/20 21:26 Last Admin: 11/22/20 21:34 Dose: 20 mg Documented by: Hydromorphone HCl (Hydromorphone 1 Mg/Ml Syringe) 1 mg IVPUSH ONETIME ONE Stop: 11/22/20 22:43 Last Admin: 11/22/20 23:08 Dose: 1 mg Documented by: Lactated Ringer's (Ringers, Lactated) 1,000 mls @ 999 mls/hr IV BOLUS ONE Stop: 11/23/20 00:01 Last Admin: 11/22/20 23:13 Dose: 999 mls/hr Documented by: Sodium Chloride (Normal Saline) 1,000 mls @ 125 mls/hr IV ASDIRECTED [facility] Last Admin: 11/23/20 08:50 Dose: 125 mls/hr Documented by: Ceftriaxone Sodium 1 gm/ (Sodium Chloride) 50 mls @ 100 mls/hr IV Q24H [facility] Stop: 11/25/20 16:00 Last Admin: 11/25/20 14:41 Dose: 100 mls/hr Documented by: Sodium Chloride (Normal Saline) 1,000 mls @ 75 mls/hr IV ASDIRECTED [facility] Last Admin: 11/25/20 05:42 Dose: 75 mls/hr Documented by: Ondansetron HCl (Ondansetron 4 Mg/2 Ml Sdv) 4 mg IVPUSH ONETIME ONE Stop: 11/22/20 22:44 Last Admin: 11/22/20 23:05 Dose: 4 mg Documented by: Pantoprazole Sodium (Pantoprazole 40 Mg Vial) 40 mg IV DAILY [facility] Last Admin: 11/24/20 08:12 Dose: 40 mg Documented by:
== END 2020-11-26 15:20 | disposition home or self-care (01) | DRG 439 ==
LOC: JP.ED 20:22 → JP.MS 23:58 → JP.ICU 11-23 00:35
PROVIDERS: ADMIT Hospitalist; ATTEND Internal Medicine
DX: K85.21 Alcohol induced acute pancreatitis with uninfected necrosis (principal); Z68.42 Body mass index [BMI] 45.0-49.9, adult; F10.288 Alcohol dependence with other alcohol-induced disorder; N39.0 Urinary tract infection, site not specified; E66.01 Morbid (severe) obesity due to excess calories; H54.7 Unspecified visual loss; K80.20 Calculus of gallbladder without cholecystitis without obstruction; F32.9 Major depressive disorder, single episode, unspecified; E03.9 Hypothyroidism, unspecified; Z98.84 Bariatric surgery status; Z88.2 Allergy status to sulfonamides; Z88.8 Allergy status to other drugs, medicaments and biological substances; Z90.49 Acquired absence of other specified parts of digestive tract
CPT/HCPCS: 36415; 74176; 80048; 80053; 81001; 81025; 82150; 83690; 84443; 85025; 87086; 87088; 87186; 94762; 96374; 96375; 99222; 99231; 99232; 99238; 99284; 99285-25; A9270-GY; C9113; J0696; J1170; J2405; J7030; J7120

== ENCOUNTER 2022-02-20 11:20 | Inpatient (IN) | payer SELFPAY ==
[2022-02-20] MEDS ORDERED: Sodium Chloride 0.9% 10 ML Syringe FLUSH PRN (13:42)
[2022-02-20] MEDS ORDERED: Ondansetron 4 MG/2 ML SDV IVPUSH ONE (13:48)
[2022-02-20] MEDS ORDERED: HYDROmorphone 1 MG/ML Syringe IVPUSH ONE (13:48)
[2022-02-20] MEDS ORDERED: Sodium Chloride 0.9% 1,000 ML IV SCH (14:00)
[2022-02-20 14:40] LABS: ESTIMATED GFR 100 mL/min (>60)
[2022-02-20] MEDS ORDERED: HYDROmorphone 1 MG/ML Syringe IM ONE (14:40)
[2022-02-20] MEDS ORDERED: Iopamidol 612 MG/ML 150 ML Bottle IV PRN (15:11)
[2022-02-20] MEDS ORDERED: Sodium Chloride 0.9% 100 ML IV SCH (15:15)
[2022-02-20] MEDS ORDERED: MVI, Adult with Vitamin K 10 ML, Thiamine 100 MG, Folic Acid 1 MG, Magnesium Sulfate 2 ... IV ONE ×5 (18:19)
[2022-02-20] MEDS ORDERED: Potassium Chloride 20 MEQ Tab.ER PO ONE (18:19)
[2022-02-20] MEDS ORDERED: Phytonadione 5 MG in Sodium Chloride 0.9% 50 ML IV ONE (18:19)
[2022-02-20] MEDS ORDERED: Ondansetron 4 MG/2 ML SDV IV PRN (18:19)
[2022-02-20] MEDS ORDERED: HYDROmorphone 1 MG/ML Syringe IVPUSH PRN (18:19)
[2022-02-20] MEDS ORDERED: Acetaminophen 325 MG Tab PO PRN (18:19)
[2022-02-20] MEDS ORDERED: Folic Acid 1 MG Tab PO SCH (18:19)
[2022-02-20] MEDS ORDERED: Potassium Chloride 20 MEQ, Lidocaine 1% 2 ML in Sodium Chloride 0.9% 100 ML IV SCH (18:19)
[2022-02-20] MEDS ORDERED: Albumin Human 25 GM in Premix Bag 1 BAG IV ONE (18:19)
[2022-02-20] MEDS ORDERED: Promethazine 6.25 MG in Sodium Chloride 0.9% 50 ML IV PRN (18:19)
[2022-02-20] MEDS ORDERED: Magnesium Hydroxide 400 MG/5 ML Susp 30 ML Cup PO PRN (18:19)
[2022-02-20] MEDS ORDERED: prednisoLONE 15 MG/5 ML Soln UD Cup PO ONE (18:19)
[2022-02-20] MEDS: Sodium Chloride 0.9% 1,000 ML IV SCH (18:29)
[2022-02-20] MEDS ORDERED: Potassium Chloride 20 MEQ in Premix Bag 1 BAG IV ONE (19:00)
[2022-02-20] MEDS ORDERED: Lidocaine 1% 5 ML VIAL INJECT ONE (19:00)
[2022-02-20] MEDS: cefTRIAXone 1 GM in Sodium Chloride 0.9% 50 ML IV SCH (21:45)
[2022-02-20] MEDS: HYDROmorphone 2 MG Tab PO PRN (21:57)
[2022-02-20] MEDS: Pantoprazole 40 MG Tab.CR PO SCH (21:58)
[2022-02-20] MEDS: Melatonin 3 MG Tab PO SCH (21:58)
[2022-02-21] MEDS: diphenhydrAMINE 25 MG Cap PO PRN ×2 (01:29→17:02)
[2022-02-21] MEDS: Sodium Chloride 0.9% 1,000 ML IV SCH ×2 (02:29→16:35)
[2022-02-21 04:47] LABS: ESTIMATED GFR 121 mL/min (>60)
[2022-02-21] MEDS: Thiamine 100 MG Tab PO SCH (09:14)
[2022-02-21] MEDS: prednisoLONE 15 MG/5 ML Soln UD Cup PO SCH (09:14)
[2022-02-21] MEDS: Folic Acid 1 MG Tab PO SCH (09:14)
[2022-02-21] MEDS: Vitamin B Complex Tab PO SCH (09:14)
[2022-02-21] MEDS: Multivitamins with Iron Tab.Chew CHEW SCH (09:14)
[2022-02-21] MEDS: HYDROmorphone 2 MG Tab PO PRN (15:14)
[2022-02-21] MEDS ORDERED: Phytonadione 5 MG in Sodium Chloride 0.9% 50 ML IV ONE (17:00)
[2022-02-21] MEDS: Albumin Human 25 GM in Premix Bag 1 BAG IV SCH (17:30)
[2022-02-21] MEDS ORDERED: Hypromellose 0.3% Ophth Soln 15 ML Bottle EYEBOTH PRN (21:17)
[2022-02-21] MEDS: Melatonin 3 MG Tab PO SCH (21:46)
[2022-02-21] MEDS: Pantoprazole 40 MG Tab.CR PO SCH (21:49)
[2022-02-21] MEDS: cefTRIAXone 1 GM in Sodium Chloride 0.9% 50 ML IV SCH (21:50)
[2022-02-22 06:22] LABS: ESTIMATED GFR 121 mL/min (>60)
[2022-02-22] MEDS: Multivitamins with Iron Tab.Chew CHEW SCH (08:45)
[2022-02-22] MEDS: Thiamine 100 MG Tab PO SCH (08:46)
[2022-02-22] MEDS: Vitamin B Complex Tab PO SCH (08:46)
[2022-02-22] MEDS: prednisoLONE 15 MG/5 ML Soln UD Cup PO SCH (08:46)
[2022-02-22] MEDS: Folic Acid 1 MG Tab PO SCH (08:46)
[2022-02-22] MEDS: HYDROmorphone 2 MG Tab PO PRN (12:15)
[2022-02-22] MEDS: Sodium Chloride 0.9% 1,000 ML IV SCH (12:16)
[2022-02-22] MEDS: diphenhydrAMINE 25 MG Cap PO PRN (14:28)
[2022-02-22] MEDS: Albumin Human 25 GM in Premix Bag 1 BAG IV SCH (18:01)
[2022-02-22] MEDS: cefTRIAXone 1 GM in Sodium Chloride 0.9% 50 ML IV SCH (21:47)
[2022-02-22] MEDS: Pantoprazole 40 MG Tab.CR PO SCH (21:47)
[2022-02-22] MEDS: Melatonin 3 MG Tab PO SCH (21:47)
[2022-02-23] MEDS: Sodium Chloride 0.9% 1,000 ML IV SCH (05:57)
[2022-02-23 06:40] LABS: ESTIMATED GFR 127 mL/min (>60)
[2022-02-23] MEDS: Folic Acid 1 MG Tab PO SCH (08:12)
[2022-02-23] MEDS: Multivitamins with Iron Tab.Chew CHEW SCH (08:12)
[2022-02-23] MEDS: Vitamin B Complex Tab PO SCH (08:12)
[2022-02-23] MEDS: prednisoLONE 15 MG/5 ML Soln UD Cup PO SCH (08:12)
[2022-02-23] MEDS: Thiamine 100 MG Tab PO SCH (08:12)
[2022-02-23] MEDS: HYDROmorphone 2 MG Tab PO PRN (08:16)
[2022-02-23] MEDS ORDERED: Sodium Chloride 0.9% 1,000 ML IV SCH (14:30)
[2022-02-23] MEDS: Melatonin 3 MG Tab PO SCH (20:05)
[2022-02-23] MEDS: Pantoprazole 40 MG Tab.CR PO SCH (20:05)
[2022-02-23] MEDS: cefTRIAXone 1 GM in Sodium Chloride 0.9% 50 ML IV SCH (21:33)
[2022-02-24] MEDS: HYDROmorphone 2 MG Tab PO PRN (08:44)
[2022-02-24] MEDS: prednisoLONE 15 MG/5 ML Soln UD Cup PO SCH (08:45)
[2022-02-24] MEDS: Multivitamins with Iron Tab.Chew CHEW SCH (08:45)
[2022-02-24] MEDS: Vitamin B Complex Tab PO SCH (08:45)
[2022-02-24] MEDS: Thiamine 100 MG Tab PO SCH (08:45)
[2022-02-24] MEDS: Folic Acid 1 MG Tab PO SCH (08:45)
[2022-02-24] MEDS ORDERED: Furosemide 40 MG/4 ML VIAL IVPUSH ONE (10:47)
[2022-02-24] MEDS: Melatonin 3 MG Tab PO SCH (21:09)
[2022-02-24] MEDS: Pantoprazole 40 MG Tab.CR PO SCH (21:09)
[2022-02-25 05:16] LABS: ESTIMATED GFR 134 mL/min (>60)
[2022-02-25] MEDS: Ondansetron 4 MG Tab.DIS PO PRN (06:22)
[2022-02-25] MEDS: Multivitamins with Iron Tab.Chew CHEW SCH (09:15)
[2022-02-25] MEDS: Vitamin B Complex Tab PO SCH (09:16)
[2022-02-25] MEDS: prednisoLONE 15 MG/5 ML Soln UD Cup PO SCH (09:16)
[2022-02-25] MEDS: Thiamine 100 MG Tab PO SCH (09:16)
[2022-02-25] MEDS: Folic Acid 1 MG Tab PO SCH (09:16)
[2022-02-25 12:08] LABS: HBSAG SCREEN Negative (Negative); HCV AB <0.1 s/co ratio (0.0-0.9); HEP A AB, IGM Negative (Negative); HEP B CORE AB, IGM Negative (Negative)
[2022-02-25] MEDS ORDERED: Furosemide 40 MG/4 ML VIAL IVPUSH ONE (13:30)
[2022-02-25] MEDS: HYDROmorphone 2 MG Tab PO PRN (19:52)
[2022-02-25] MEDS: Pantoprazole 40 MG Tab.CR PO SCH (20:03)
[2022-02-25] MEDS: Melatonin 3 MG Tab PO SCH (20:04)
[2022-02-26 05:09] LABS: ESTIMATED GFR 127 mL/min (>60)
[2022-02-26 08:11] LABS: ANA DIRECT Negative (Negative)
[2022-02-26] MEDS: Multivitamins with Iron Tab.Chew CHEW SCH (09:42)
[2022-02-26] MEDS: prednisoLONE 15 MG/5 ML Soln UD Cup PO SCH (09:43)
[2022-02-26] MEDS: Folic Acid 1 MG Tab PO SCH (09:43)
[2022-02-26] MEDS: Thiamine 100 MG Tab PO SCH (09:44)
[2022-02-26] MEDS: Vitamin B Complex Tab PO SCH (09:44)
[2022-02-26] MEDS ORDERED: Iopamidol 612 MG/ML 100 ML Bottle IV PRN (15:37)
[2022-02-26] MEDS ORDERED: Sodium Chloride 0.9% 50 ML IV SCH (15:45)
[2022-02-26] MEDS: Melatonin 3 MG Tab PO SCH (21:52)
[2022-02-26] MEDS: Pantoprazole 40 MG Tab.CR PO SCH (21:52)
[2022-02-27 05:01] LABS: ESTIMATED GFR 127 mL/min (>60)
[2022-02-27] MEDS: Vitamin B Complex Tab PO SCH (09:19)
[2022-02-27] MEDS: Folic Acid 1 MG Tab PO SCH (09:19)
[2022-02-27] MEDS: Multivitamins with Iron Tab.Chew CHEW SCH (09:19)
[2022-02-27] MEDS: Thiamine 100 MG Tab PO SCH (09:19)
[2022-02-27] MEDS: prednisoLONE 15 MG/5 ML Soln UD Cup PO SCH (09:20)
[2022-02-27] MEDS: Ondansetron 4 MG Tab.DIS PO PRN (10:00)
[2022-02-27] MEDS: Pantoprazole 40 MG Tab.CR PO SCH (21:51)
[2022-02-27] MEDS: Melatonin 3 MG Tab PO SCH (21:51)
[2022-02-28 04:58] LABS: ESTIMATED GFR 127 mL/min (>60)
[2022-02-28] MEDS: Vitamin B Complex Tab PO SCH (08:25)
[2022-02-28] MEDS: Folic Acid 1 MG Tab PO SCH (08:25)
[2022-02-28] MEDS: Thiamine 100 MG Tab PO SCH (08:25)
[2022-02-28] MEDS: Multivitamins with Iron Tab.Chew CHEW SCH (08:25)
[2022-02-28] MEDS: prednisoLONE 15 MG/5 ML Soln UD Cup PO SCH (08:25)
[2022-02-28] MEDS ORDERED: Furosemide 40 MG/4 ML VIAL IVPUSH ONE (11:11)
[2022-02-28] MEDS: Meropenem 1 GM in Sodium Chloride 0.9% 100 ML IV SCH ×2 (12:59→20:26)
[2022-02-28] MEDS: Pantoprazole 40 MG Tab.CR PO SCH (20:27)
[2022-02-28] MEDS: Melatonin 3 MG Tab PO SCH (20:27)
[2022-03-01] MEDS: Meropenem 1 GM in Sodium Chloride 0.9% 100 ML IV SCH ×3 (03:43→20:25)
[2022-03-01] MEDS: oxyCODONE 5 MG Tab PO PRN (03:49)
[2022-03-01 04:53] LABS: ESTIMATED GFR 134 mL/min (>60)
[2022-03-01] MEDS: Vitamin B Complex Tab PO SCH (09:47)
[2022-03-01] MEDS: Thiamine 100 MG Tab PO SCH (09:47)
[2022-03-01] MEDS: Multivitamins with Iron Tab.Chew CHEW SCH (09:47)
[2022-03-01] MEDS: prednisoLONE 15 MG/5 ML Soln UD Cup PO SCH (09:47)
[2022-03-01] MEDS: Folic Acid 1 MG Tab PO SCH (09:47)
[2022-03-01] MEDS ORDERED: Furosemide 20 MG/2 ML VIAL IVPUSH ONE (11:00)
[2022-03-01] MEDS: Pantoprazole 40 MG Tab.CR PO SCH (20:25)
[2022-03-01] MEDS: Melatonin 3 MG Tab PO SCH (20:25)
[2022-03-02] MEDS: oxyCODONE 5 MG Tab PO PRN (03:41)
[2022-03-02] MEDS: Meropenem 1 GM in Sodium Chloride 0.9% 100 ML IV SCH ×3 (03:42→20:15)
[2022-03-02 05:04] LABS: ESTIMATED GFR 134 mL/min (>60)
[2022-03-02] MEDS: Folic Acid 1 MG Tab PO SCH (08:06)
[2022-03-02] MEDS: prednisoLONE 15 MG/5 ML Soln UD Cup PO SCH (08:07)
[2022-03-02] MEDS: Multivitamins with Iron Tab.Chew CHEW SCH (08:07)
[2022-03-02] MEDS: Thiamine 100 MG Tab PO SCH (08:07)
[2022-03-02] MEDS: Vitamin B Complex Tab PO SCH (08:07)
[2022-03-02] MEDS ORDERED: Furosemide 20 MG/2 ML VIAL IVPUSH ONE (11:00)
[2022-03-02] MEDS ORDERED: Phytonadione 5 MG in Sodium Chloride 0.9% 50 ML IV ONE (11:30)
[2022-03-02] MEDS: Albumin Human 25 GM in Premix Bag 1 BAG IV SCH (13:13)
[2022-03-02] MEDS: Melatonin 3 MG Tab PO SCH (20:15)
[2022-03-02] MEDS: Pantoprazole 40 MG Tab.CR PO SCH (20:15)
[2022-03-03] MEDS: Meropenem 1 GM in Sodium Chloride 0.9% 100 ML IV SCH ×3 (04:25→19:22)
[2022-03-03 05:00] LABS: ESTIMATED GFR 134 mL/min (>60)
[2022-03-03] MEDS: Thiamine 100 MG Tab PO SCH (09:02)
[2022-03-03] MEDS: Vitamin B Complex Tab PO SCH (09:02)
[2022-03-03] MEDS: prednisoLONE 15 MG/5 ML Soln UD Cup PO SCH (09:02)
[2022-03-03] MEDS: Multivitamins with Iron Tab.Chew CHEW SCH (09:02)
[2022-03-03] MEDS: Folic Acid 1 MG Tab PO SCH (09:02)
[2022-03-03] MEDS: Albumin Human 25 GM in Premix Bag 1 BAG IV SCH (11:49)
[2022-03-03] MEDS: Melatonin 3 MG Tab PO SCH (20:33)
[2022-03-03] MEDS: Pantoprazole 40 MG Tab.CR PO SCH (20:33)
[2022-03-04] MEDS: oxyCODONE 5 MG Tab PO PRN (03:21)
[2022-03-04] MEDS: Meropenem 1 GM in Sodium Chloride 0.9% 100 ML IV SCH ×3 (03:36→20:05)
[2022-03-04 06:32] LABS: ESTIMATED GFR 134 mL/min (>60)
[2022-03-04] MEDS: Multivitamins with Iron Tab.Chew CHEW SCH (08:09)
[2022-03-04] MEDS: Folic Acid 1 MG Tab PO SCH (08:09)
[2022-03-04] MEDS: Vitamin B Complex Tab PO SCH (08:09)
[2022-03-04] MEDS: prednisoLONE 15 MG/5 ML Soln UD Cup PO SCH (08:09)
[2022-03-04] MEDS: Thiamine 100 MG Tab PO SCH (08:09)
[2022-03-04] MEDS: Potassium Chloride 20 MEQ Tab.ER PO SCH ×2 (08:32→20:11)
[2022-03-04] MEDS ORDERED: Furosemide 20 MG/2 ML VIAL IVPUSH ONE (12:00)
[2022-03-04] MEDS: Albumin Human 25 GM in Premix Bag 1 BAG IV SCH (12:53)
[2022-03-04] MEDS: Pantoprazole 40 MG Tab.CR PO SCH (20:10)
[2022-03-04] MEDS: Melatonin 3 MG Tab PO SCH (20:11)
[2022-03-05] MEDS: Meropenem 1 GM in Sodium Chloride 0.9% 100 ML IV SCH ×3 (04:48→20:09)
[2022-03-05 05:07] LABS: ESTIMATED GFR 134 mL/min (>60)
[2022-03-05] MEDS ORDERED: Iopamidol 612 MG/ML 500 ML Multipack Bottle IV ONE (07:34)
[2022-03-05] MEDS ORDERED: Sodium Chloride 0.9% 75 ML IV SCH (07:45)
[2022-03-05] MEDS: prednisoLONE 15 MG/5 ML Soln UD Cup PO SCH (08:25)
[2022-03-05] MEDS: Vitamin B Complex Tab PO SCH (08:25)
[2022-03-05] MEDS: Folic Acid 1 MG Tab PO SCH (08:25)
[2022-03-05] MEDS: Multivitamins with Iron Tab.Chew CHEW SCH (08:25)
[2022-03-05] MEDS: Thiamine 100 MG Tab PO SCH (08:25)
[2022-03-05] MEDS ORDERED: Furosemide 20 MG/2 ML VIAL IVPUSH ONE (11:00)
[2022-03-05] MEDS: Melatonin 3 MG Tab PO SCH (20:09)
[2022-03-05] MEDS: Pantoprazole 40 MG Tab.CR PO SCH (20:09)
[2022-03-06] MEDS: Meropenem 1 GM in Sodium Chloride 0.9% 100 ML IV SCH ×3 (03:50→21:13)
[2022-03-06 05:01] LABS: ESTIMATED GFR 134 mL/min (>60)
[2022-03-06] MEDS: prednisoLONE 15 MG/5 ML Soln UD Cup PO SCH (09:13)
[2022-03-06] MEDS: Vitamin B Complex Tab PO SCH (09:13)
[2022-03-06] MEDS: Thiamine 100 MG Tab PO SCH (09:13)
[2022-03-06] MEDS: Multivitamins with Iron Tab.Chew CHEW SCH (09:13)
[2022-03-06] MEDS: Folic Acid 1 MG Tab PO SCH (09:13)
[2022-03-06] MEDS: Furosemide 20 MG/2 ML VIAL IVPUSH SCH (12:40)
[2022-03-06] MEDS: Melatonin 3 MG Tab PO SCH (21:14)
[2022-03-06] MEDS: Pantoprazole 40 MG Tab.CR PO SCH (21:14)
[2022-03-07] MEDS: Meropenem 1 GM in Sodium Chloride 0.9% 100 ML IV SCH ×3 (03:37→20:22)
[2022-03-07 05:21] LABS: ESTIMATED GFR 134 mL/min (>60)
[2022-03-07] MEDS: prednisoLONE 15 MG/5 ML Soln UD Cup PO SCH (08:10)
[2022-03-07] MEDS: Folic Acid 1 MG Tab PO SCH (08:10)
[2022-03-07] MEDS: Thiamine 100 MG Tab PO SCH (08:10)
[2022-03-07] MEDS: Multivitamins with Iron Tab.Chew CHEW SCH (08:10)
[2022-03-07] MEDS: Vitamin B Complex Tab PO SCH (08:10)
[2022-03-07] MEDS: Furosemide 20 MG/2 ML VIAL IVPUSH SCH (08:12)
[2022-03-07] MEDS ORDERED: Potassium Chloride 20 MEQ Tab.ER PO ONE (14:53)
[2022-03-07] MEDS: Pantoprazole 40 MG Tab.CR PO SCH (20:23)
[2022-03-07] MEDS: Melatonin 3 MG Tab PO SCH (20:23)
[2022-03-08] MEDS: Meropenem 1 GM in Sodium Chloride 0.9% 100 ML IV SCH ×3 (03:16→20:29)
[2022-03-08 06:17] LABS: ESTIMATED GFR 134 mL/min (>60)
[2022-03-08] MEDS: Vitamin B Complex Tab PO SCH (08:31)
[2022-03-08] MEDS: Thiamine 100 MG Tab PO SCH (08:31)
[2022-03-08] MEDS: Spironolactone 25 MG Tab PO SCH ×2 (08:31→13:12)
[2022-03-08] MEDS: Furosemide 20 MG Tab PO SCH ×2 (08:31→13:12)
[2022-03-08] MEDS: prednisoLONE 15 MG/5 ML Soln UD Cup PO SCH (08:32)
[2022-03-08] MEDS: Folic Acid 1 MG Tab PO SCH (08:32)
[2022-03-08] MEDS: Multivitamins with Iron Tab.Chew CHEW SCH (08:32)
[2022-03-08] MEDS: Pantoprazole 40 MG Tab.CR PO SCH (20:29)
[2022-03-08] MEDS: Melatonin 3 MG Tab PO SCH (20:29)
[2022-03-09] MEDS: Meropenem 1 GM in Sodium Chloride 0.9% 100 ML IV SCH ×3 (04:26→21:00)
[2022-03-09 05:08] LABS: ESTIMATED GFR 134 mL/min (>60)
[2022-03-09] MEDS: Spironolactone 25 MG Tab PO SCH ×2 (07:59→14:03)
[2022-03-09] MEDS: Furosemide 20 MG Tab PO SCH ×2 (07:59→14:03)
[2022-03-09] MEDS: Ondansetron 4 MG Tab.DIS PO PRN (08:31)
[2022-03-09] MEDS: Folic Acid 1 MG Tab PO SCH (09:01)
[2022-03-09] MEDS: Multivitamins with Iron Tab.Chew CHEW SCH (09:01)
[2022-03-09] MEDS: prednisoLONE 15 MG/5 ML Soln UD Cup PO SCH (09:01)
[2022-03-09] MEDS: Vitamin B Complex Tab PO SCH (09:01)
[2022-03-09] MEDS: Thiamine 100 MG Tab PO SCH (09:01)
[2022-03-09] MEDS: Pantoprazole 40 MG Tab.CR PO SCH (21:00)
[2022-03-09] MEDS: Melatonin 3 MG Tab PO SCH (21:00)
[2022-03-10] MEDS: Meropenem 1 GM in Sodium Chloride 0.9% 100 ML IV SCH ×3 (03:51→21:34)
[2022-03-10 05:48] LABS: ESTIMATED GFR 127 mL/min (>60)
[2022-03-10] MEDS: prednisoLONE 15 MG/5 ML Soln UD Cup PO SCH (08:51)
[2022-03-10] MEDS: Vitamin B Complex Tab PO SCH (08:51)
[2022-03-10] MEDS: Thiamine 100 MG Tab PO SCH (08:51)
[2022-03-10] MEDS: Multivitamins with Iron Tab.Chew CHEW SCH (08:51)
[2022-03-10] MEDS: Spironolactone 25 MG Tab PO SCH ×2 (08:51→13:21)
[2022-03-10] MEDS: Folic Acid 1 MG Tab PO SCH (08:51)
[2022-03-10] MEDS: Furosemide 20 MG Tab PO SCH ×2 (08:51→13:21)
[2022-03-10] MEDS ORDERED: Potassium Chloride 20 MEQ Tab.ER PO ONE (09:00)
[2022-03-10] MEDS: Melatonin 3 MG Tab PO SCH (21:34)
[2022-03-10] MEDS: Pantoprazole 40 MG Tab.CR PO SCH (21:34)
[2022-03-11 05:36] LABS: ESTIMATED GFR 127 mL/min (>60)
[2022-03-11] MEDS: oxyCODONE 5 MG Tab PO PRN (06:08)
[2022-03-11] MEDS: Multivitamins with Iron Tab.Chew CHEW SCH (08:35)
[2022-03-11] MEDS: Folic Acid 1 MG Tab PO SCH (08:36)
[2022-03-11] MEDS: Furosemide 20 MG Tab PO SCH ×2 (08:36→13:47)
[2022-03-11] MEDS: Spironolactone 25 MG Tab PO SCH ×2 (08:36→13:47)
[2022-03-11] MEDS: Vitamin B Complex Tab PO SCH (08:36)
[2022-03-11] MEDS: Thiamine 100 MG Tab PO SCH (08:36)
[2022-03-11] MEDS: prednisoLONE 15 MG/5 ML Soln UD Cup PO SCH (08:36)
[2022-03-11] MEDS: Pantoprazole 40 MG Tab.CR PO SCH (20:42)
[2022-03-11] MEDS: Melatonin 3 MG Tab PO SCH (20:42)
[2022-03-12 05:12] LABS: ESTIMATED GFR 127 mL/min (>60)
[2022-03-12] MEDS: Furosemide 20 MG Tab PO SCH ×2 (07:23→13:21)
[2022-03-12] MEDS: Spironolactone 25 MG Tab PO SCH ×2 (07:23→13:21)
[2022-03-12] MEDS: Vitamin B Complex Tab PO SCH (08:47)
[2022-03-12] MEDS: prednisoLONE 15 MG/5 ML Soln UD Cup PO SCH (08:47)
[2022-03-12] MEDS: Thiamine 100 MG Tab PO SCH (08:47)
[2022-03-12] MEDS: Multivitamins with Iron Tab.Chew CHEW SCH (08:47)
[2022-03-12] MEDS: Folic Acid 1 MG Tab PO SCH (08:47)
[2022-03-12] MEDS: oxyCODONE 5 MG Tab PO PRN (19:29)
[2022-03-12] MEDS: Pantoprazole 40 MG Tab.CR PO SCH (20:48)
[2022-03-12] MEDS: Melatonin 3 MG Tab PO SCH (20:48)
[2022-03-13] MEDS: oxyCODONE 5 MG Tab PO PRN (04:00)
[2022-03-13 05:15] LABS: ESTIMATED GFR 127 mL/min (>60)
[2022-03-13] MEDS: Furosemide 20 MG Tab PO SCH ×2 (08:00→13:22)
[2022-03-13] MEDS: Spironolactone 25 MG Tab PO SCH ×2 (08:00→13:22)
[2022-03-13] MEDS: prednisoLONE 15 MG/5 ML Soln UD Cup PO SCH (08:01)
[2022-03-13] MEDS: Thiamine 100 MG Tab PO SCH (08:01)
[2022-03-13] MEDS: Vitamin B Complex Tab PO SCH (08:01)
[2022-03-13] MEDS: Multivitamins with Iron Tab.Chew CHEW SCH (08:01)
[2022-03-13] MEDS: Folic Acid 1 MG Tab PO SCH (08:01)
[2022-03-13] MEDS: Ferrous Sulfate 325 MG Tab PO SCH (16:38)
[2022-03-13] MEDS: Pantoprazole 40 MG Tab.CR PO SCH (20:39)
[2022-03-13] MEDS: Melatonin 3 MG Tab PO SCH (20:39)
[2022-03-14 05:32] LABS: ESTIMATED GFR 134 mL/min (>60)
[2022-03-14 07:34] VITALS: BP 114/45; PULSE 94
[2022-03-14] MEDS: prednisoLONE 15 MG/5 ML Soln UD Cup PO SCH (08:17)
[2022-03-14] MEDS: Furosemide 20 MG Tab PO SCH (08:17)
[2022-03-14] MEDS: Spironolactone 25 MG Tab PO SCH (08:17)
[2022-03-14] MEDS: Thiamine 100 MG Tab PO SCH (08:18)
[2022-03-14] MEDS: Vitamin B Complex Tab PO SCH (08:18)
[2022-03-14] MEDS: Folic Acid 1 MG Tab PO SCH (08:18)
[2022-03-14] MEDS: Multivitamins with Iron Tab.Chew CHEW SCH (08:18)
[2022-03-14] MEDS: Ferrous Sulfate 325 MG Tab PO SCH (08:18)
== END 2022-03-14 14:30 | disposition home or self-care (01) | DRG 432 ==
LOC: JP.ED 11:20 → JP.MS 17:31
PROVIDERS: ADMIT Internal Medicine; ATTEND Hospitalist
DX: K70.10 Alcoholic hepatitis without ascites (principal); K85.21 Alcohol induced acute pancreatitis with uninfected necrosis; K86.3 Pseudocyst of pancreas; F10.288 Alcohol dependence with other alcohol-induced disorder; E87.1 Hypo-osmolality and hyponatremia; Z68.42 Body mass index [BMI] 45.0-49.9, adult; Z20.822 Contact with and (suspected) exposure to COVID-19; E66.01 Morbid (severe) obesity due to excess calories; E87.6 Hypokalemia; K70.0 Alcoholic fatty liver; H54.7 Unspecified visual loss; F32.A Depression, unspecified; E03.9 Hypothyroidism, unspecified; K74.60 Unspecified cirrhosis of liver; Z98.84 Bariatric surgery status; Z88.2 Allergy status to sulfonamides; Z90.49 Acquired absence of other specified parts of digestive tract
CPT/HCPCS: 36415; 74160; 74177; 74177-26; 80048; 80053; 80074; 80076; 80307; 81001; 82103; 82140; 82150; 82390; 82728; 83516; 83690; 83735; 84145; 84443; 85025; 85027; 85610; 85730; 86038; 86256; 86301; 86317; 86704; 87086; 87088; 87186; 96361; 96365; 96367; 96375; 99285; 99285-25; A9270-GY; J0696; J1170; J1940; J2185; J2405; J3411; J3430; J3475; J3480; J3490; J7030; P9047; Q0162; Q9967; U0002